=== PATIENT | male | born 1955 | race Caucasian/White ===

== ENCOUNTER 2017-01-01 16:56 | Inpatient (IN) | payer MEDICAID, OTHER ==
[2017-01-01] MEDS ORDERED: GLUCOPHAGE1000 M1 PO (17:43)
[2017-01-01] MEDS ORDERED: KEPPRA1000 M1 PO (17:43)
[2017-01-01] MEDS ORDERED: PLAVIX75 M1 PO (17:44)
[2017-01-01] MEDS ORDERED: LOPRESSOR50 M1 PO (17:44)
[2017-01-01] MEDS ORDERED: LIPITOR40 M1 PO (17:45)
[2017-01-01] MEDS ORDERED: SEROQUEL50 M1 PO (17:45)
[2017-01-01] MEDS ORDERED: NORVASC10 M2 PO (17:46)
[2017-01-01 22:22] LABS: ABG CO2 ARTERIAL 25 mmol/L (21-27); ARTERIAL BLD GAS O2 SATURATION 96 % (95-98); ARTERIAL BLOOD GAS PCO2 39 mmHg (32-45); ARTERIAL PO2 84 mmHg (70-100); BICARBONATE 23 mmol/L (21-28); BLOOD GAS BASE EXCESS -1 mM/L (-/+3)
[2017-01-02 04:47] LABS: ANION GAP 11 mmol/L (0-20); BLOOD UREA NITROGEN 22 mg/dl (6-24); CALCIUM 8.6 mg/dl (8.5-10.5); CARBON DIOXIDE-VENOUS 26 mmol/L (22-32); CHLORIDE 110 mmol/l (96-110); CREATININE 1.71 mg/dl (0.60-1.30); GLUCOSE 131 mg/dL (70-110); POTASSIUM 3.6 mmol/L (3.7-5.1); SODIUM 143 mmol/L (135-145); eGFR VALUE FOR BLACK 49 mL/Min
[2017-01-02 04:54] LABS: BASO % 0.4 % (0-2); EOS % 3.4 % (0-7); EOSINOPHIL ABSOLUTE COUNT 0.3 tho/cmm (0.0-0.7); HCT-HEMATOCRIT 27.7 % (36.0-53.5); HGB-HEMOGLOBIN 9.3 gm/dl (13.5-17.0); IMMATURE GRANULOCYTES ABSOLUTE 0.01 tho/cmm (0-0.03); IMMATURE GRANULOCYTES PERCENT 0.1 % (0-0.3); LYMPH % 12.7 % (20-45); LYMPH ABSOLUTE COUNT 1.1 tho/cmm (0.8-4.5); MCH (MEAN CORPUSCULAR HGB) 27.1 pg (28.0-32.0); MCHC MEAN CORPUSCULAR HGB CONC 33.6 % (32.0-36.0); MCV (MEAN CELL VOLUME) 80.8 fl (82.0-96.0); MEAN PLATELET VOLUME 12.5 cmc (9.4-12.4); MONO % 7.9 % (0-12); MONOCYTE ABSOLUTE COUNT 0.7 tho/cmm (0.0-1.2); NEUTROPHIL ABSOLUTE COUNT 6.3 tho/cmm (1.6-8.0); NEUTROPHIL-AUTOMATED 6.3 tho/cmm (1.6-8.0); NEUTROPHILS % 75.5 % (40-80); PLATELET COUNT 216 tho/cmm (150-450); RED BLOOD COUNT 3.43 mil/cmm (4.40-5.70); RED CELL DISTRIBUTION WIDTH 13.3 % (12.4-16.4); WHITE BLOOD COUNT 8.3 tho/cmm (4.0-10.0)
[2017-01-02 15:26] LABS: PROCALCITONIN 0.05 ng/ml (0.05-0.09)
[2017-01-02 15:31] LABS: BODY FLUID EOSINOPHILS 1 %; BODY FLUID LYMPHOCYTES 42 %; BODY FLUID MACROPHAGES 33 %; BODY FLUID MESOTHELIAL CELLS 10 %; BODY FLUID NEUTROPHILS 14 %
[2017-01-02 15:33] LABS: BODY FLUID VOLUME 1350 ml
[2017-01-02 15:49] LABS: BODY FLUID TYPE PLEURAL
[2017-01-02 15:50] LABS: BODY FLUID APPEARANCE HAZY (CLEAR); BODY FLUID COLOR YELLOW (COLORLESS); BODY FLUID RBC COUNT 3000 cmm (0)
[2017-01-02 23:43] LABS: BODY FLUID WBC COUNT 594 cmm
[2017-01-03 09:47] LABS: BODY FLUID TYPE PLEURAL
[2017-01-03 19:09] LABS: URINE TOTAL PROTEIN-RANDOM 150.4 mg/dl (<11.8)
[2017-01-04 05:20] LABS: ANION GAP 13 mmol/L (0-20); BLOOD UREA NITROGEN 22 mg/dl (6-24); CALCIUM 8.3 mg/dl (8.5-10.5); CARBON DIOXIDE-VENOUS 25 mmol/L (22-32); CHLORIDE 108 mmol/l (96-110); CREATININE 2.13 mg/dl (0.60-1.30); GLUCOSE 130 mg/dL (70-110); POTASSIUM 3.6 mmol/L (3.7-5.1); SODIUM 142 mmol/L (135-145); eGFR VALUE FOR BLACK 38 mL/Min
[2017-01-04] MEDS ORDERED: LEVAQUIN750 M1 PO (11:59)
== END 2017-01-04 16:43 | DRG 193 ==
LOC: PCUA 16:56
PROVIDERS: Internal Medicine Pulmonary Disease; Physician Assistant; Registered Nurse; ADMIT Internal Medicine
PROC: 0W9B3ZZ Drainage of Left Pleural Cavity, Percutaneous Approach (ICD-10-PCS; principal; 2017-01-01)
DX: J18.9 Pneumonia, unspecified organism (principal); J96.91 Respiratory failure, unspecified with hypoxia; J96.01 Acute respiratory failure with hypoxia; J90 Pleural effusion, not elsewhere classified; N17.9 Acute kidney failure, unspecified; E11.9 Type 2 diabetes mellitus without complications; E78.5 Hyperlipidemia, unspecified; I10 Essential (primary) hypertension; G51.0 Bell's palsy; I69.322 Dysarthria following cerebral infarction
CPT/HCPCS: C1751; J1650; J1815; J1940; J1956; J2543; J3370; J7050